=== PATIENT | female | born 1965 | race Caucasian/White ===

== ENCOUNTER 2017-02-16 14:28 | Emergency (ER) | payer OTHER ==
[~2017-02-16 14:28] MED LIST: Donnatal Elixir 16.2 MG/5 ML UDCUP ONE
[2017-02-16] MEDS ORDERED: Nitroglycerin 0.4 MG TAB 1 EACH ONE (14:38)
[2017-02-16 14:59] LABS: PTT 28.2 SEC (22.9-36.1); Prothrombin Time 13.4 SEC (12.0-14.7)
[2017-02-16 15:00] LABS: #Basophils 0.2 thou/uL (0.0-0.2); #Eosinphils 0.3 thou/uL (0.0-0.7); #Lymphocytes 3.6 thou/uL (1.20-3.40); #Monocytes 0.6 thou/uL (0.11-0.59); #Neutrophils 4.3 thou/uL (1.40-6.50); %Basophils 2.1 % (0.0-1.0); %Lymphocytes 40.1 % (21.0-51.0); %Monocytes 6.9 % (0.0-10.0); Hemoglobin 15.1 g/dL (12.0-16.0); Mean Corpuscular HGB CONC 32.3 g/dL (32.0-36.0); Mean Corpuscular Hemoglobin 29.7 pg (27.0-31.0); Mean Corpuscular Volume 92.2 fl (81.0-99.0); Mean Platelet Volume 6.6 fL (7.4-10.4); Platelet Count 255 thou/uL (130-400); RBC Distribution Width 12.2 % (11.5-14.5); Red Blood Cell (RBC) Count 5.06 mill/uL (4.20-5.40)
--- NOTE | 2017-02-16 15:03 | RAD ---
UPRIGHT AP PORTABLE CHEST 1 VIEW: Date: 02/16/17 HISTORY: 52-year-old female with history of chest pain and history of prior [place] 8 years ago. FINDINGS: Monitor leads overlie the chest. Mild dextrocardia. Left-sided aortic arch. Old granulomatous diseas e. IMPRESSION: Mild stable dextrocardia with atherosclerosis of the aorta and old granulomatous disease. No acute i ntrathoracic disease. POS: [facility]
[2017-02-16 15:10] LABS: ALT (SGPT) 18 U/L (8-55); AST (SGOT) 25 U/L (5-34); Alkaline Phosphatase 84 U/L (40-150); Anion Gap 16 mmol/L (10-20); BUN (Urea Nitrogen) 8 mg/dL (9.8-20.1); Bilirubin, Total 0.4 mg/dL (0.2-1.2); CK (CPK) 307 U/L (29-168); Calc. Creatinine Clearance 0 mL/min (70-130); Calcium 9.4 mg/dL (7.8-10.44); Carbon Dioxide 29 mmol/L (22-29); Chloride 100 mmol/L (98-107); Estimated GFR-MDRD 71; Globulin 2.9 g/dL (2.4-3.5); Glucose 83 mg/dL (70-105); Magnesium 2.4 mg/dL (1.6-2.6); Potassium 3.9 mmol/L (3.5-5.1); Protein, Total 6.9 g/dL (6.0-8.3); Sodium 141 mmol/L (136-145)
[2017-02-16 15:12] LABS: CKMB 2.2 ng/mL (0-6.6); Troponin I Less than 0.010 ng/mL (< 0.028)
[2017-02-16 15:41] LABS: Bilirubin Negative (Negative); Clarity Clear (Clear); Glucose, Urine (Dipstick) Negative (Negative); Leukocyte Negative (Negative); Nitrite Negative (Negative); Protein, Urine (Dipstick) Negative (Neg-Trace); Specific Gravity, Urine 1.015 (1.005-1.030); Urobilinogen 0.2 mg/dL (0.2-1.0)
[2017-02-16 15:42] LABS: Bacteria/HPF Rare-Few HPF (None Seen); Blood, Urine Negative (Negative); RBC/HPF 0-3 HPF (0-3); WBC/HPF 0-3 HPF (0-3)
[2017-02-16] MEDS ORDERED: Donnatal Elixir 16.2 MG/5 ML UDCUP ONE (15:57)
[2017-02-16] MEDS ORDERED: Mag-Al Plus 1200 MG/1200 MG/120 MG/30 ML UDCUP ONE (15:58)
[2017-02-16] MEDS ORDERED: Lidocaine Viscous Sol 2% 15 ml UD Cup ONE (15:58)
[2017-02-16] MEDS ORDERED: Benzonatate 100 MG CAP ONE (16:59)
[2017-02-16] MEDS ORDERED: AMOXicillin 250 MG CAP ONE (16:59)
== END 2017-02-16 17:05 | disposition home or self-care (01) ==
LOC: MADERS 14:28
DX: K21.0 Gastro-esophageal reflux disease with esophagitis (principal); J45.909 Unspecified asthma, uncomplicated; K80.50 Calculus of bile duct without cholangitis or cholecystitis without obstruction; E78.5 Hyperlipidemia, unspecified; I25.2 Old myocardial infarction; J44.9 Chronic obstructive pulmonary disease, unspecified; F17.210 Nicotine dependence, cigarettes, uncomplicated; Z79.891 Long term (current) use of opiate analgesic; Z79.899 Other long term (current) drug therapy
CPT/HCPCS: 36415; 71010; 80053; 81001; 82553; 83735; 83880; 84484; 85025; 85610; 85730; 87086; 93005; 94760

== ENCOUNTER 2018-04-22 11:27 | Emergency (ER) | payer OTHER ==
[2018-04-22 12:28] LABS: #Monocytes 0.5 thou/uL (0.11-0.59); #Neutrophils 8.6 thou/uL (1.40-6.50); %Basophils 0.3 % (0.0-1.0); %Lymphocytes 9.8 % (21.0-51.0); %Monocytes 5.1 % (0.0-10.0); %Neutrophils 84.8 % (42.0-75.0); Hemoglobin 13.6 g/dL (12.0-16.0); Mean Corpuscular HGB CONC 30.5 g/dL (32.0-36.0); Mean Corpuscular Hemoglobin 29.9 pg (27.0-31.0); Mean Corpuscular Volume 98.2 fL (78.0-98.0); Mean Platelet Volume 6.4 fL (7.4-10.4); Platelet Count 304 thou/uL (130-400); RBC Distribution Width 12.3 % (11.5-14.5); Red Blood Cell (RBC) Count 4.56 mill/uL (4.20-5.40); White Blood Cell (WBC) Count 10.1 thou/uL (4.8-10.8)
[2018-04-22] MEDS ORDERED: Lorazepam 1 MG TAB ONE (12:28)
[2018-04-22 12:47] LABS: Carbon Dioxide 39 mmol/L (22-29); Chloride 90 mmol/L (98-107); Potassium 4.7 mmol/L (3.5-5.1); Sodium 141 mmol/L (136-145)
[2018-04-22 12:48] LABS: ALT (SGPT) 178 U/L (8-55); AST (SGOT) 89 U/L (5-34); Albumin 4.3 g/dL (3.5-5.0); Alkaline Phosphatase 84 U/L (40-150); Anion Gap 17 mmol/L (10-20); BUN (Urea Nitrogen) 23 mg/dL (9.8-20.1); Bilirubin, Total 0.6 mg/dL (0.2-1.2); Calc. Creatinine Clearance 0 mL/min (70-130); Calcium 9.9 mg/dL (7.8-10.44); Estimated GFR-MDRD 83; Globulin 2.7 g/dL (2.4-3.5); Glucose 103 mg/dL (70-105)
[2018-04-22 15:31] LABS: Bilirubin Negative (Negative); Blood, Urine Negative (Negative); Clarity Clear (Clear); Glucose, Urine (Dipstick) Negative (Negative); Leukocyte Negative (Negative); Nitrite Negative (Negative); Protein, Urine (Dipstick) Negative (Neg-Trace); Urobilinogen 0.2 mg/dL (0.2-1.0); pH, Urine 7.5 (5.0-9.0)
[2018-04-22 15:32] LABS: Amphetamine Not Detected (NotDetected); Barbiturates Screen Not Detected (NotDetected); Benzodiazepine Screen Detected (NotDetected); Cocaine Metabolite Screen Not Detected (NotDetected); Medtox Control Line Valid? VALID (VALID); Methadone Not Detected (NotDetected); Methamphetamine Not Detected (NotDetected); Opiate Screen Detected (NotDetected); Oxycodone Screen Not Detected (NotDetected); Phencyclidine (PCP) Not Detected (NotDetected); THC/Cannabinoid Screen Not Detected (NotDetected); Tricyclic Screen Not Detected (NotDetected)
== END 2018-04-22 18:49 | disposition short-term general hospital (02) ==
LOC: MADERS 11:27
DX: R09.02 Hypoxemia (principal); E78.5 Hyperlipidemia, unspecified; I25.2 Old myocardial infarction; I25.10 Atherosclerotic heart disease of native coronary artery without angina pectoris; J44.9 Chronic obstructive pulmonary disease, unspecified; Z87.891 Personal history of nicotine dependence; Z79.899 Other long term (current) drug therapy
CPT/HCPCS: 36415; 80053; 80306; 81003; 84443; 85025; 99285

== ENCOUNTER 2024-02-17 01:36 | Emergency (ER) | payer OTHER ==
[2024-02-17] MEDS ORDERED: Ipratropium/Albuterol 3 ML NEB ONE (02:31)
[2024-02-17 02:47] LABS: #Basophils 0.1 thou/uL (0.0-0.2); #Eosinphils 0.1 thou/uL (0.0-0.7); #Lymphocytes 1.2 thou/uL (1.20-3.40); #Monocytes 0.6 thou/uL (0.11-0.59); #Neutrophils 4.1 thou/uL (1.40-6.50); %Basophils 0.9 % (0.0-1.0); %Eosinophils 1.2 % (0.0-10.0); %Lymphocytes 19.4 % (21.0-51.0); %Monocytes 9.4 % (0.0-10.0); %Neutrophils 69.1 % (42.0-75.0); Hemoglobin 12.5 g/dL (12.0-16.0); Mean Corpuscular Hemoglobin 28.6 pg (27.0-31.0); Mean Corpuscular Volume 98.7 fl (78.0-98.0); Mean Platelet Volume 5.9 fL (7.4-10.4); Platelet Count 187 10x3/uL (130-400); RBC Distribution Width 13.2 % (11.5-14.5); Red Blood Cell (RBC) Count 4.36 mill/uL (4.20-5.40)
[2024-02-17 03:06] LABS: Troponin I Less than 0.010 ng/mL (< 0.028)
[2024-02-17 03:07] LABS: ALT (SGPT) 10 U/L (8-55); AST (SGOT) 16 U/L (5-34); Albumin 3.8 g/dL (3.5-5.0); Alkaline Phosphatase 88 U/L (40-110); BUN (Urea Nitrogen) 8 mg/dL (9.8-20.1); Bilirubin, Total 0.2 mg/dL (0.2-1.2); CK (CPK) 83 U/L (29-168); Calc. Creatinine Clearance 0 mL/min (70-130); Calcium 9.5 mg/dL (7.8-10.44); Carbon Dioxide 38 mmol/L (22-29); Estimated GFR 81; Globulin 2.7 g/dL (2.4-3.5); Glucose 104 mg/dL (70-105); Protein, Total 6.5 g/dL (6.0-8.3)
[2024-02-17 03:15] LABS: Anion Gap 20 mmol/L (10-20); Chloride 85 mmol/L (98-107); Potassium 3.9 mmol/L (3.5-5.1); Sodium 138 mmol/L (136-145)
== END 2024-02-17 04:16 ==
LOC: MADERS 01:36
DX: S09.90XA Unspecified injury of head, initial encounter (principal); J44.9 Chronic obstructive pulmonary disease, unspecified; I12.9 Hypertensive chronic kidney disease with stage 1 through stage 4 chronic kidney disease, or unspecified chronic kidney disease; N18.9 Chronic kidney disease, unspecified; I25.10 Atherosclerotic heart disease of native coronary artery without angina pectoris; I48.91 Unspecified atrial fibrillation; W01.0XXA Fall on same level from slipping, tripping and stumbling without subsequent striking against object, initial encounter; Z79.82 Long term (current) use of aspirin; Z87.891 Personal history of nicotine dependence
CPT/HCPCS: 36415; 70450; 71045; 72125; 80053; 82550; 84484; 85025; 93005; 94760; G0390; J7620